=== PATIENT | male | born 1940 | race Caucasian/White ===

== ENCOUNTER → 2018-07-11 | Outpatient (CLI) | payer BC | LOC: COL.RAD 08:59 | DX: M47.26 Other spondylosis with radiculopathy, lumbar region (principal); M51.46 Schmorl's nodes, lumbar region ==

== ENCOUNTER 2020-04-30 10:49 | Inpatient (IN) | payer MEDICARE, BC ==
[~2020-04-30] VITALS: Ht 175.3 cm; Wt 76.6 kg
[2020-06-03] VITALS (11 sets, daily range): BP systolic 92–135; BP diastolic 59–80; PULSE 75–92; TEMP 97–98.2
[2020-06-03] MEDS ORDERED: NORVASC 5MG5 MG/TAB PO (01:07)
[2020-06-03] MEDS ORDERED: GLUCOTROL10 MG PO (01:08)
[2020-06-03] MEDS ORDERED: FARXIGA10 PO (01:08)
[2020-06-03] MEDS ORDERED: JANUVIA 100MG100 MG PO (01:09)
[2020-06-03] MEDS ORDERED: GLUCOPHAGE XR500 M1 PO (01:10)
[2020-06-03] MEDS ORDERED: ZOCOR 10MG10 MG PO (01:10)
[2020-06-03] MEDS ORDERED: DIOVAN 80MG80 MG PO (01:11)
[2020-06-03] MEDS ORDERED: [UNRECOGNIZED DRUG - OTHER] PO (01:12)
[2020-06-03] MEDS ORDERED: IRON TABLETS325 MG PO (01:12)
[2020-06-03] MEDS ORDERED: FOLIC ACID 11 MG/TA1 PO (01:13)
[2020-06-03] MEDS ORDERED: VITAMIN B12 781 TAB PO (01:14)
[2020-06-03] MEDS ORDERED: NATURAL C500 MG PO (01:14)
--- NOTE | 2020-06-03 06:20 | NUR ---
Patient arrived to room 330 via ambulation with walker. Gait steady. 5 page and med rec completed upon admission. 20G IV started in right hand. Left hip prepped per orders. Pulses present and marked. Patient sent with Jp at 0622.
--- NOTE | 2020-06-03 11:31 | NUR ---
PT TO ROOM 330 PER BED WITH REPORT FROM AMRITA @ 4769. PT IS A/O X3 LUNGS CLEAR, BOWEL SOUNDS ACTIVE. DRESSING TO LEFT HIP CDI WITH OCCLUSIVE BULKY DRESSING IN PLACE. IV TO PUMP. SCDS AND TEDS BILATERALLY.
--- NOTE | 2020-06-03 11:57 | NUR ---
Fertilizer Supervisor met with patient to discuss discharge planning. Patient lives alone in [place] and sees Dr. Jin for primary care. Patient obtains medications from [facility] with no difficulties. Patient has a walker but reports he doesn't use it normally. Patient uses no other DME and reports he is normally independent with ADLS. Patient does not have Advance Directives and was not interested in completing DPOA-HC at this time. Patient has two children. His daughter, Stephanie (ph#[phone]) lives [place] [facility] and plans to stay with patient for a couple days upon discharge. Patient's son, Marco (ph#[phone]) also lives in [place]. Patient plans to return home at discharge. SW will continue to follow for discharge needs.
[2020-06-04] VITALS (7 sets, daily range): BP systolic 110–138; BP diastolic 66–86; PULSE 75–90; TEMP 97.7–98.2
--- NOTE | 2020-06-04 01:31 | NUR ---
PT CURRENTLY RESTING IN BED, RECIEVED PAIN MEDS FOR PAIN IN HIP 07/07, ON REASSESSMENT PT APPEARED COMFORTABLE AND WAS SLEEPING. PT RECIEVED SCHEDULED MEDS AND VSS, WILL CONTINUE TO MONITOR PT STATUS AND UPDATE PROVIDERS NEEDED.
[2020-06-04 06:55] LABS: HEMATOCRIT 39.3 % (42.0-52.0)
--- NOTE | 2020-06-04 08:44 | NUR ---
PT UP TO BR AND THEN RETURNED TO RECLINER, STEADY GAIT, PASSING JENNIFER. PT REPORTING PAIN TO LEFT HIP8/10, PO PAIN MEDS GIVEN ORDERS.OCCLUSIVE DRESSING TO LEFT HIP CDI. WILL CHANGE DRESSING AFTER WORKING WITH THERAPY.
--- NOTE | 2020-06-04 12:27 | NUR ---
PT UP TO BR WITH ASSIST. UNSTEADY ON FEET. RETURNED TO RECLINER WITH ASSIST.
--- NOTE | 2020-06-04 13:53 | NUR ---
DRESSING CHANGE COMPLETE, LANDA CATHETER DISCONTINUED. AQUACEL PLACED OVER INCISION WHICH HAS WELL APPROXIMATED EDGES CLOSED WITH DERMABOND. TEDS PLACED OVER DRESSING. PT TOLERATED BOTH PROCEEDURES WELL..
--- NOTE | 2020-06-04 20:00 | NUR ---
Report received. 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 Assessment complete. VS stable. A&OX3. Denies pain/nausea/shortness of breath. Dressing to left [id number]. TEDs/SCDs bilat. Fresh ice pack applied. Encouraged to call for questions/concerns. Discussed ambulation before bed. Verbalizes understanding. Call light in reach. Will monitor.
--- NOTE | 2020-06-04 22:42 | NUR ---
Up to ambulate in hallway with stand by assist. Ambulated 200 feet. Tolerated well. C/O pain to left hip-described as throbbing-rating pain 7/10. Oxycodone 10mg given per dr order. Will monitor.
[2020-06-05 04:58] VITALS: BP 136/83; PULSE 83; TEMP 97.5
--- NOTE | 2020-06-05 05:00 | NUR ---
Rested well this shift. Received oxycodone x1. Voiding without difficulty. Tolerating PO. SCDs/TEDs bilat. Aquacell to left hip CDI. Ambulated in the hallway with stand by assist. Tolerated well. Denies current needs. Call light in reach. WIll monitor.
[2020-06-05 06:36] LABS: HEMATOCRIT 39.6 % (42.0-52.0); HEMOGLOBIN 13.2 g/dl (13.5-18.0)
[2020-06-05 07:44] VITALS: BP 157/82; PULSE 102; TEMP 97.3
[2020-06-05] MEDS ORDERED: ASPI325T6 PO (09:38)
[2020-06-05] MEDS ORDERED: CELEBREX 200MG200 MG PO (09:38)
[2020-06-05] MEDS ORDERED: NORCO 325 MG-51 TAB PO (09:39)
[2020-06-05] MEDS ORDERED: ROXICODONE 55 MG/TAB PO (09:41)
[2020-06-05] MEDS ORDERED: SENOKOT S 50 MG1 TAB PO (09:41)
--- NOTE | 2020-06-05 10:00 | NUR ---
Patient is doing well getting around. Minimal complains of pain. No complaints of nausea. He is getting around well with walker. He is having minimal pain. His pain was picking up and he wanted pain pills for PT only this morning. No complaints of nausea. No other changes at this time. Call light within reach.
[2020-06-05 12:23] VITALS: BP 103/61; PULSE 64; TEMP 98.2
--- NOTE | 2020-06-05 14:45 | NUR ---
Patient discharged home. Discharge instructions discussed with patient. All belongings packed up and sent with patient. Explained when his follow up appointments are. Explained when to take hip dressing off. Reminded him to take his aspirin 325mg BID as ordered. Copies of discharge instructions sent with patient. Explained when his PT appointment is. Reminded patient of total hip precautions. Patient has needed several reminders. Patient walked out via wheel chair by Ursula CURRY.
== END 2020-06-05 14:45 | disposition home or self-care (01) | DRG 470 ==
LOC: JCC 06-03 05:15
PROVIDERS: ADMIT Orthopaedic Surgery
PROC: 0SRB04A Replacement of Left Hip Joint with Ceramic on Polyethylene Synthetic Substitute, Uncemented, Open Approach (ICD-10-PCS; principal; 2020-06-03 07:30)
DX: M16.12 Unilateral primary osteoarthritis, left hip (principal); E11.9 Type 2 diabetes mellitus without complications; E78.5 Hyperlipidemia, unspecified; Z96.653 Presence of artificial knee joint, bilateral; Z87.891 Personal history of nicotine dependence
CPT/HCPCS: A4314; A9284; C1713; C1776; J0690; J2704; J3010; J7030; J7120

== ENCOUNTER → 2020-05-28 | Outpatient (CLI) | payer BC ==
[~2020-05-28] MED LIST: DIOVAN 80MG80 MG PO; FARXIGA10 PO; FOLIC ACID 11 MG/TA1 PO; GLUCOPHAGE XR500 M1 PO; GLUCOTROL10 MG PO; IRON TABLETS325 MG PO; JANUVIA 100MG100 MG PO; NATURAL C500 MG PO; NORVASC 5MG5 MG/TAB PO; VITAMIN B12 781 TAB PO; ZOCOR 10MG10 MG PO; [UNRECOGNIZED DRUG - OTHER] PO
== END ==
LOC: COL.LAB 10:06
DX: Z01.812 Encounter for preprocedural laboratory examination (principal); Z01.83 Encounter for blood typing; M16.12 Unilateral primary osteoarthritis, left hip

== ENCOUNTER 2021-01-12 04:08 | Observation (INO) | payer MEDICARE, BC ==
[~2021-01-12] VITALS: Ht 175.3 cm; Wt 90.8 kg
[~2021-01-12 04:08] MED LIST changes: +ASPI325T6 PO; +CELEBREX 200MG200 MG PO; +NORCO 325 MG-51 TAB PO; +ROXICODONE 55 MG/TAB PO; +SENOKOT S 50 MG1 TAB PO
[2021-01-12 04:26] LABS: BASO # 0.1 (0.0-0.2); EOS # 0.3 (0.0-0.7); EOS % 5.5 % (0-4.0); GRAN # 2.4 (1.4-6.5); GRAN % 38.4 % (42.2-75.2); HEMATOCRIT 47.3 % (42.0-52.0); HEMOGLOBIN 15.6 g/dl (13.5-18.0); LYMPH # 2.5 (1.2-3.4); LYMPH % 40.2 % (20.0-51.0); MEAN CELL VOLUME 95 fl (80.0-100.0); MEAN CORPUSCULAR HEMOGLOBIN 31 pg (27.0-31.0); MEAN CORPUSCULAR HGB CONC 33 g/dl (33.0-37.0); MEAN PLATELET VOLUME 9.5 fl (7.4-10.4); MONO # 0.9 (0.1-0.6); MONO % 14.3 % (1.7-9.3); PLATELET COUNT 180 K/mm3 (130-400); RED BLOOD COUNT 4.97 M/mm3 (4.20-5.60); REDCELL DISTRIBUTION WIDTH-CV 12.9 % (11.5-14.5)
[2021-01-12 04:36] LABS: ALANINE AMINOTRANSFERASE 57 U/L (4-49); ALBUMIN 4.5 gm/dL (3.5-5.0); ALKALINE PHOSPHATASE 47 U/L (50-136); AST,SGOT 70 U/L (15-37); BILIRUBIN,TOTAL 1.8 mg/dL (0.0-1.0); BLOOD UREA NITROGEN 17 mg/dL (9-20); CALCIUM 9.3 mg/dL (8.4-10.2); CARBON DIOXIDE 28 mmol/L (22-30); CREATININE, serum 0.96 (0.66-1.25); GLUCOSE 111 mg/dL (74-106); LIPASE 126 U/L (23-300); POTASSIUM 3.8 mmol/L (3.4-5.0); SODIUM 141 mmol/L (137-145); TOTAL PROTEIN 7.7 gm/dL (6.4-8.2)
[2021-01-12 04:38] LABS: CHLORIDE 105 mmol/L (98-107)
[2021-01-12 04:39] LABS: ANION GAP 8 mmol/L (7-16)
[2021-01-12 04:49] LABS: TROPONIN-I < 0.012 ng/mL (0.000-0.035)
[2021-01-12] MEDS ORDERED: ADVIL200 MG PO (05:32)
[2021-01-12] MEDS ORDERED: ADVIL PM 38 MG-1 TAB PO (05:33)
[2021-01-12] MEDS ORDERED: ASPIRIN 81M81 MG/TA2 PO (05:34)
[2021-01-12 06:11] LABS: INR 1.1 (0.8-3.0); PROTHROMBIN TIME 12.1 SECONDS (9.7-12.8)
[2021-01-12 06:14] LABS: PARTIAL THROMBOPLASTIN TIME 29.3 SECONDS (26.0-37.0)
[2021-01-12 06:15] LABS: CHOLESTEROL RISK RATIO 3.7; MAGNESIUM 1.7 mg/dL (1.6-2.3)
[2021-01-12 08:24] VITALS: BP 128/83; PULSE 71; TEMP 97.5
[2021-01-12 11:16] VITALS: BP 144/71; PULSE 74; TEMP 97.3
[2021-01-12] MEDS ORDERED: PROTONIX 40MG T40 MG PO (11:43)
--- NOTE | 2021-01-12 13:56 | NUR ---
First visit from the occupational therapy director. No needs right now
--- NOTE | 2021-01-12 14:00 | NUR ---
Admission assessment completed, alert/oriented, vital signs stable, denies any chest pain or discomfort sence arrival, was given ASA in ER, heart RRR/SR on tele, distal pulses are palpable, lung CTA/ no resp.difficulty, reviewd home meds/allergies/pharmacy, notified hospitalist and cardiology of patient arrival, he is up independently in his room, he is NPo at this time, he denies other needs, will continue to monitor
--- NOTE | 2021-01-12 15:07 | NUR ---
Retail Maintenance Technician met with the patient to complete intake. The patient lives alone in [place]. The patient uses a cane when he outside and denies any other DME use. The patient is independent. The patient's PCP is Dr. Jin and patient receives medications from [facility]. The patient does not have advanced directives but has two adult children, Will and Stephanie. The patient plans to return home at discharge and Will to provide transportation. There are no additional needs.
[2021-01-12 16:08] VITALS: BP 144/68; PULSE 74; TEMP 97.9
--- NOTE | 2021-01-12 16:30 | NUR ---
Discussed discharge orders with patient, instructed to follow up with PCP and Cardiology as scheduled, instructed to take meds as prescirble/ script for Protonix sent to [facility] pharmacy for him, IV and tele removed, leaving with family , will escort him out once his ride arrives
== END 2021-01-12 17:38 | disposition home or self-care (01) ==
LOC: COL.ER 04:08 → MEDICAL 05:27
PROVIDERS: Family Medicine; Nurse Practitioner Family; ADMIT Internal Medicine
DX: R07.9 Chest pain, unspecified (principal); I10 Essential (primary) hypertension; E78.5 Hyperlipidemia, unspecified; E11.9 Type 2 diabetes mellitus without complications; M19.90 Unspecified osteoarthritis, unspecified site; I08.0 Rheumatic disorders of both mitral and aortic valves
CPT/HCPCS: J7030; Q9967